=== PATIENT | female | born 2000 | race Caucasian/White ===

== ENCOUNTER 2025-09-30 01:11 | Emergency (ER) | payer OTHER, SELFPAY ==
[2025-09-30 01:12] VITALS: BP 110/71; PULSE 95; RESP 17; TEMP 36.4; O2SAT 99; BMI 24.5
[2025-09-30 01:41] VITALS: BP 118/66; BP 126/78; BP 130/59; PULSE 98
--- NOTE | 2025-09-30 01:41 | EKG12_ITS ---
Test Reason : SYNC Blood Pressure : */* mmHG Vent. Rate : 93 BPM Atrial Rate : 93 BPM P-R Int : 140 ms QRS Dur : 80 ms QT Int : 346 ms P-R-T Axes : 65 64 27 degrees QTcB Int : 430 ms Normal sinus rhythm Nonspecific T wave abnormality Abnormal ECG Confirmed by Hebert Wong ([id number]), newspaper copy editor OSMEL SHEPPARD ([id number]) on 10/01/2025 8:37:48 AM Referred By: Confirmed By: Hebert Wong
[2025-09-30 01:54] LABS: Hematocrit 34.8 % (37-47); Hemoglobin 12.1 g/dL (12.0-15.0); Immature Granulocytes Count 0.060 X10^3/uL (0.0-0.0); Mean Corp Hgb Conc 34.8 g/dL (32-36); Mean Corpuscular Volume 85.7 fL (81-99); Mean Platelet Vol. 9.0 fl (6.2-12.0); NRBC Flagged by Analyzer 0 % (0-5); Platelet Count 267 K/mm3 (150-450); RBC Distribution Width CV 11.2 % (11.6-14.6); RBC Distribution Width SD 35.1 fl (35.1-43.9); Red Blood Count 4.06 M/mm3 (4.2-5.4); White Blood Count 11.7 K/mm3 (4.4-11.0)
[2025-09-30 02:07] LABS: Internal QC Validated? YES +Cl - CLEAR BKGD; Pregnancy, Serum, hCG Quali. NEGATIVE Negative
[2025-09-30 02:12] VITALS: BP 118/68; PULSE 94; RESP 19; TEMP 36.9; O2SAT 100
[2025-09-30 02:20] LABS: Magnesium 2.0 mg/dL (1.5-2.2)
[2025-09-30] MEDS: 0.9% Normal Saline (1000mL) 1,000 ML 999 ML IV (02:20)
--- NOTE | 2025-09-30 02:25 | CT_ITS ---
PROCEDURE: BRAIN/HEAD WITHOUT CONTRAST 09/30/2025 REASON FOR EXAM: SYNCOPE TECHNIQUE: Procedure Code: CTBR Modality: CT Procedure: BRAIN/HEAD WITHOUT CONTRAST Coronal and Sagittal reconstruction series were provided. One or more dose reduction techniques were used (e.g., Automated exposure control, adjustment of the mA and/or kV according to patient size, use of iterative reconstruction technique. RADIATION DOSE SUMMARY: CTDlvol: 44.99 mGy DLP: 796 mGycm COMPARISON: None. FINDINGS: CT SCAN OF THE BRAIN WITHOUT IV CONTRAST CLINICAL INDICATION: TECHNIQUE: Axial and reformatted sagittal and coronal images of the brain obtained without IV contrast administration. Normal size of the ventricles and extra-axial spaces for the patient's age. Normal white matter tracts of the supratentorial brain. Normal basal ganglia and thalami. Normal brainstem. Normal cerebellum. There is no demonstrated extra-axial, intraparenchymal, or intraventricular hemorrhage. There are no findings of an acute ischemic infarction. Normal calvarium. There is no demonstrated fracture. Normal soft tissue structures. 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 Normal remaining visualized paranasal sinuses. CT/Brain/Head without Contrast IMPRESSION: No CT evidence of an acute brain abnormality. [facility]
[2025-09-30 02:30] LABS: Anion Gap 14 (5-15); BUN 11 mg/dL (4-19); BUN/Creat Ratio 14.1 RATIO (10-20); Calcium,Total 9.5 mg/dL (7.6-11.0); Carbon Dioxide 22.2 mmol/L (21.0-32.0); Chloride 103 mmol/L (98-108); Estimated Creatinine Clearance 100.14 ml/min (50-250); Glucose 123 mg/dL (70-99); Potassium 3.7 mmol/L (3.3-5.1)
[2025-09-30 03:00] VITALS: BP 121/65; PULSE 89; RESP 16; O2SAT 99
--- NOTE | 2025-09-30 03:23 | EDS_ITS ---
HPI History of Present Illness Chief Complaint: Syncope Informant: patient and spouse/S.O. Narrative Narrative: Patient is a 25-year-old female who reports no significant past medical history. She states that she had fallen asleep on the couch and then she got up and walked up to her bedroom. She states that she went into the bathroom and then began to feel lightheaded and dizzy and states vision started to get dark. She states she started to think to herself that she should probably sit down and the next thing he knows she was waking up on the floor. She states she did not experience chest pain or palpitations prior to the event. She denies any histo ry of cardiac dysrhythmia in the family. She states that there has been no recent sick symptoms such as nausea vomiting or diarrhea and she denies any concern for . However because of the syncopal event she presents for evaluation [facility] no medical history Home Medications ?Medication ?Instructions ?Recorded ?Last Taken ?Type NK 09/30/25 Unknown History Allergy/AdvReac Type Severity Reaction Status Date / Time No Known Allergies Allergy Verified 09/30/25 01:16 Surgical History (Updated 09/30/25 @ 01:13 by Monica Martinez) Hx of breast reduction, elective Social History Smoking Status: Never smoker [facility] ED Constitutional Constitutional ED: Denies chills or fever(s) Eyes Eyes: Reports other Details: Positive tunnel vision ENT ENT ED: Denies sore throat Cardiovascular Cardiovascular: Reports other Details: Positive syncope ; Denies chest pain, palpitations or racing heartbeat Respiratory/Chest Respiratory/Chest: Denies cough or dyspnea Gastrointestinal Gastrointestinal: Denies abdominal pain, diarrhea, nausea or vomiting Genitourinary Genitourinary ED: Denies dysuria Musculoskeletal Musculoskeletal: Denies back pain or neck pain Integumentary Denies rash Neurologic Neurologic: Denies headache(s), paresthesias or weakness Hematologic/Lymphatic Hematologic/Lymphatic: Denies easy bleeding or easy bruising EXAM Physical Exam Const Vital Signs: 09/30/25 01:12 09/30/25 01:12 09/30/25 01:41 Temperature 97.6 F L Temperature Source Oral Pulse Rate 95 Pulse Rate [Lying] 98 Respiratory Rate 17 Respiratory Effort Normal Non-Labored Respiratory Pattern Normal Blood Pressure 110/71 Blood Pressure [Lying] 118/66 Blood Pressure [Sitting (for 1 minute prior to obtaining)] 130/59 H Blood Pressure [Standing (for 1 minute prior to obtaining)] 126/78 H Blood Pressure Mean 84 Blood Pressure Mean [Lying] 83 Blood Pressure Mean [Sitting (for 1 minute prior to obtaining)] 82 Blood Pressure Mean [Standing (for 1 minute prior to obtaining)] 94 Pulse Ox 99 Oxygen Delivery Method Room Air 09/30/25 02:12 09/30/25 03:00 09/30/25 03:27 Temperature 98.4 F 98.7 F Temperature Source Oral Pulse Rate 94 89 96 Pulse Rate [Lying] Respiratory Rate 19 H 16 18 Respiratory Effort Respiratory Pattern Blood Pressure 118/68 121/65 H 110/64 Blood Pressure [Lying] Blood Pressure [Sitting (for 1 minute prior to obtaining)] Blood Pressure [Standing (for 1 minute prior to obtaining)] Blood Pressure Mean 84 83 79 Blood Pressure Mean [Lying] Blood Pressure Mean [Sitting (for 1 minute prior to obtaining)] Blood Pressure Mean [Standing (for 1 minute prior to obtaining)] Pulse Ox 100 99 98 Oxygen Delivery Method Room Air Room Air Positive well nourished and well developed General Appearance ED: well developed; Negative for pallor HEENT Reports moist mucous membranes HEENT Narrative: Normocephalic atraumatic No tongue or cheek biting to suggest seizure activity No secondary findings in the posterior pharynx to suggest infection Eyes PERRL and EOMs intact bilaterally General Eye ED: Negative for scleral icterus Neck supple Neck Narrative: No bony deformity or step-off of the cervical spine Patient is able to move her neck in all directions without pain Resp normal respiratory effort and clear to auscultation bilaterally Cardio regular rate and regular rhythm Rate: other Other Details: Heart is regular rate and rhythm without murmurs rubs or gallop Radial and carotid pulses are equal and symmetric No carotid bruit noted Extremity normal to inspection Extremity Narrative: No sign of long bone injury such as bony deformity or joint effusion Neuro oriented x3, CN's II-XII intact bilaterally and no sensory deficits noted Neuro Narrative: GCS of 15 Cranial nerves II through XII are grossly intact without focal neurologic deficit No pronator drift no dysmetria no truncal ataxia NIH stroke scale score of 0 Sensorium / Orientation: alert Motor Exam: strength 5/5 throughout Psych mental status grossly normal Skin no rashes or lesions noted and no wounds General Skin Exam: Negative for jaundice or pallor MDM MDM MDM Narrative Medical decision making narrative: Patient arrived to the ER with stable vitals and spontaneous resolution of symptoms. She reported a syncopal event after standing up and walking and denied any palpitations or chest discomfort prior to the episode. In order to assess for cardiac dysrhythmia or ischemia an EKG was obtained and she was placed on the avionics technician. Orthostatic vitals were obtained to check as a cause for her episode as well. Basic blood work was obtained to rule out acute blood loss anemia or acute kidney injury or electrolyte abnormality. Labs revealed no clinically significant changes. A head CT was obtained to rule out mass or bleed as cause of her event and was normal as well. After receiving 1 L of IV fluid she reported feeling better and could ambulate with a steady gait and therefore with negative workup and resolution of symptoms there is no need for further intervention and she is otherwise safe for discharge. History & Record Review Discussion w/independent historian: Patient and Significant other Lab Data Attestation: I reviewed the patient's lab results. Labs: Laboratory Results - last 24 hr 09/30/25 01:48 WBC 11.7 H RBC 4.06 L Hgb 12.1 Hct 34.8 L MCV 85.7 MCH 29.8 MCHC 34.8 RDW Std Deviation 35.1 RDW Coeff of Amalia 11.2 L Plt Count 267 MPV 9.0 Immature Gran % (Auto) 0.500 Neut % (Auto) 64.4 Lymph % (Auto) 23.9 Garvin % (Auto) 9.4 Eos % (Auto) 1.4 Baso % (Auto) 0.4 Absolute Neuts (auto) 7.6 Absolute Lymphs (auto) 2.80 Nucleated RBC % 0 Sodium 139 Potassium 3.7 Chloride 103 Carbon Dioxide 22.2 Anion Gap 14 BUN 11 Creatinine 0.79 Estim Creat Clear Calc 100.14 Est GFR (MDRD) Non-Af 105 BUN/Creatinine Ratio 14.1 Glucose 123 H Calcium 9.5 Magnesium 2.0 Serum , Qual NEGATIVE Radiography Diagnostic Testing: Clinical Impression(s) from Imaging Studies Brain CT 09/30/25 02:25 IMPRESSION: No CT evidence of an acute brain abnormality. Reading [facility] Discharge Plan Triage Chief Complaint: Syncope ED Provider: Andes,Steve Dx/Rx/DC Orders Clinical Impression: Syncope Instructions: Causes of Syncope, Diagnosing Syncope Prescriptions: No Action NK Primary Care Provider: Norberto Jones,Out of Referrals: Norberto Doctor,Out of [Primary Care Provider, Medical] Activity Restrictions/Additional Instructions: Your workup today revealed no obvious finding for your bout of syncope/passing out. There was no sign of heart damage no sign of abnormal heart rhythm no neurologic disorder or no clinically significant lab changes. Please follow-up with your family doctor and discuss referral to cardiology so that he can get further worked up regarding this event. Keep yourself well-hydrated and return to the ER should you have any further concerns Print Language: Greenlandic Disposition Disposition: Home, Self Care Discharge Date/Time: 09/30/25 03:58
[2025-09-30 03:27] VITALS: BP 110/64; PULSE 96; RESP 18; TEMP 37.1; O2SAT 98
== END 2025-09-30 03:58 | disposition home or self-care (01) ==
PROVIDERS: Emergency Provider Emergency Medicine; Visit Provider Emergency Medicine
DX: R55 Syncope and collapse (principal)
CPT/HCPCS: 70450; 80048; 83735; 84703; 85025; 93005; 96360; 96361; 99285; A4216